=== PATIENT | male | born 1970 | race Caucasian/White ===

== ENCOUNTER 2016-11-23 09:08 | Day surgery (SDC) | payer BC ==
[~2016-11-23 09:08] MED LIST: Buffered Lidocaine 0.9% SYRIN* 5 ML/SYR SYRINGE INTRADERM ONE; Dexamethasone IV* 4 MG/ML 1 ML (4 MG) IV SLOW PU ONE; Famotidine IV* 10 MG/ML 2 ML (20 mg) IV ONE
[2016-11-23] MEDS ORDERED: Dexamethasone IV* 4 MG/ML 1 ML (4 MG) ONE (09:09)
[2016-11-23] MEDS ORDERED: Buffered Lidocaine 0.9% SYRIN* 5 ML/SYR SYRINGE ONE (09:09)
[2016-11-23] MEDS ORDERED: ceFAZolin 2 GM PREMIX(*) 0 GM/0 ML BAG IVPB ONE (09:09)
[2016-11-23] MEDS ORDERED: Famotidine IV* 10 MG/ML 2 ML (20 mg) ONE (09:09)
[2016-11-23] MEDS ORDERED: DiMENhydriNATE IV* 50 MG/ML VIAL IV PUSH PRN (10:58)
[2016-11-23] MEDS ORDERED: oxyCODONE/Acetamin 5/325 MG* TAB PO PRN (10:58)
[2016-11-23] MEDS ORDERED: fentaNYL* 50 MCG/ML 2 ML VIAL (100 MCG VIAL) IV PRN (10:58)
[2016-11-23] MEDS ORDERED: HYDROmorphone* 1 MG/ML 1 ML SYR IV PRN (10:58)
[2016-11-23] MEDS ORDERED: Ondansetron INJ* 2 MG/ML VIAL IV PRN (10:58)
[2016-11-23] MEDS ORDERED: Surgical Lubricant STERILE* 120 GM TOP.GEL ONE (10:59)
[2016-11-23] MEDS ORDERED: Propofol* 10 MG/ML 20 ML BTL IV PUSH ONE (11:00)
[2016-11-23] MEDS ORDERED: Bupivacaine 0.25% EPI 200,000* 30 ML SDV ONE (11:00)
[2016-11-23] MEDS ORDERED: Chloroprocaine 2%* 20 ML VIAL ONE (11:01)
[2016-11-23] MEDS ORDERED: Ketorolac INJ* 30 MG/ML 1 ML VIAL ONE (11:01)
[2016-11-23] MEDS ORDERED: fentaNYL* 50 MCG/ML 2 ML VIAL (100 MCG VIAL) ONE (11:01)
[2016-11-23] MEDS ORDERED: Ondansetron INJ* 2 MG/ML VIAL ONE (11:01)
[2016-11-23] MEDS ORDERED: Midazolam* 1 MG/ML 5 ML VIAL (5 MG) ONE (11:01)
[2016-11-23] MEDS ORDERED: ceFOXitin 2 GM IVPREMIX* 2 GM/50 ML BAG ONE (11:04)
[2016-11-23 15:46] VITALS: BP 112/72
--- NOTE | 2016-11-23 23:15 | OP ---
CC: Dr. Eliel Milligan * DATE OF OPERATION: 11/23/16 - [facility] DATE OF : 68 SURGEON: Christofer Khan MD STARCH MANGLE TENDER: None. ANESTHESIOLOGIST: Dr. Penny. ANESTHESIA: Spinal anesthetic, local infiltration. PRE-OP DIAGNOSIS: Rectal pain with bleeding, possible hemorrhoids. POST-OP DIAGNOSIS: Hemorrhoids. OPERATIVE PROCEDURE: Anoscopy with banding of solitary hemorrhoid. DESCRIPTION OF PROCEDURE: The patient was supine on the operating table. After adequate intravenous sedation, spinal anesthetic, compressions stocking, Santo Hugger warmer, and intravenous antibiotics, he was positioned in the prone janie knife position with the buttocks taped apart. External anal examination was normal. Digital rectal examination was normal. Anoscopy revealed a medium sized hemorrhoid on the left side, which is was little friable, bled easily. I did not identify any additional hemorrhoids. There was no fissure. No evidence of abscess or fluctuance. The solitary hemorrhoid was successfully double banded. He tolerated well. Local anesthetic was administered. A gauze dressing was placed. He was brought to Recovery in good condition. No complications. No drains. No pathologic specimens. Sponge and instruments counts correct. Estimated blood loss was 10 mL. [id number]/[facility] #: [id number] MTDD
== END 2016-11-23 14:30 | disposition home or self-care (01) ==
LOC: OR 09:08
PROVIDERS: ATTEND Surgery
DX: K64.1 Second degree hemorrhoids (principal); E83.119 Hemochromatosis, unspecified
CPT/HCPCS: A9270-GY; J0690; J0694; J1100; J1885; J2250; J2400; J2405; J2704; J3010

== ENCOUNTER → 2018-12-30 | Day surgery (SDC) | payer BC ==
[~2018-12-30] MED LIST changes: -Buffered Lidocaine 0.9% SYRIN* 5 ML/SYR SYRINGE INTRADERM ONE; +Bupivacaine 0.25% SDV PF* 10 ML VIAL INJ ONE; -Dexamethasone IV* 4 MG/ML 1 ML (4 MG) IV SLOW PU ONE; -Famotidine IV* 10 MG/ML 2 ML (20 mg) IV ONE; +Lidocaine 1% w EPI 1:100,000* MDV 20 ML VIAL ONE
[2018-12-30 06:28] VITALS: BP 119/80
--- NOTE | 2018-12-30 16:20 | OP ---
DATE OF OPERATION: 12/30/18 - [facility] DATE OF : 68 SURGEON: Dru Phillips MD SHIP PROPELLER FINISHER: MICKEY Cee ANESTHESIOLOGIST: None. ANESTHESIA: Local only with 1% lidocaine with epinephrine. PRE-OP DIAGNOSIS: Right small trigger finger. POST-OP DIAGNOSIS: Right small trigger finger. OPERATIVE PROCEDURE: Right small trigger finger release. INDICATIONS: Galindo has the recurrent trigger finger with an associated nodule where he had a prior flexor digitorum profundus tendon chronic laceration. He wants to see if he could get some relief of the triggering. ESTIMATED BLOOD LOSS: 2 mL. COMPLICATIONS: None. FINDINGS: See above and below. DESCRIPTION OF PROCEDURE: Galindo was seen in the preoperative holding area. The correct site, side, and procedure were identified. I anesthetized the operative area with 1% lidocaine with epinephrine. We came back to the operating room where the arm was prepped and draped in the usual fashion and a time-out was performed. I made a 1 cm longitudinal incision over the A1 deniz area of the right small finger. Dissection was carried down and full-thickness flaps were raised off the tendon sheath. Ragnell retractors were placed. The A1 deniz was released in its entirety with the tenotomy scissors. A bulbous nodule off of the ruptured FDP tendon was noted that was debrided back with a tenotomy scissors. I had him let open and close the hand. Everything was looking good at this point and so I irrigated out the wound and the skin was closed with 4-0 nylon suture. He was then taken to the recovery room in stable condition. [id number]/[facility] #: [id number] [facility]
== END | disposition home or self-care (01) ==
LOC: OR 05:54
PROVIDERS: ATTEND Orthopaedic Surgery Hand Surgery
DX: M65.351 Trigger finger, right little finger (principal); E78.5 Hyperlipidemia, unspecified; E83.119 Hemochromatosis, unspecified
CPT/HCPCS: J3490